=== PATIENT | female | born 1955 | race Caucasian/White ===

== ENCOUNTER 2018-04-18 22:07 | Observation (INO) | payer OTHER ==
--- NOTE | 2018-04-18 22:27 | EDPHY ---
H & P Stated Complaint: sternum pain after fall lat night Time Seen by Provider: 04/18/18 22:27 HPI/ROS: HPI CHIEF COMPLAINT: Anterior chest wall pain right sternal pain status post fall. HISTORY OF PRESENT ILLNESS: Patient is 62-year-old female, visiting her daughter from out of town yesterday was at his daughter's house and tripped over something and fell hitting her right anterior chest wall on a table corner. She now has right-sided anterior chest wall pain. Denies shortness of breath we she does take a deep breath in a gives her discomfort on the anterior right chest wall. Also when you press on her right anterior chest wall gives her discomfort. Denies any other areas of injury. Not on any blood thinners. Plan for this patient Patient took ibuprofen prior to arrival. Past Medical History: Hypertension, thyroid disease, chronic back pain Past Surgical History: No recent surgery Social History: denies daily use of drugs or alcohol. Visiting daughter from [facility]. Family History: Noncontributory ROS REVIEW OF SYSTEMS: 10 Systems were reviewed and negative with the exception of the elements mentioned in the history of present illness. Exam Constitutional triage nursing summary reviewed, vital signs reviewed, awake/ alert. Eyes normal conjunctivae and sclera, EOMI, PERRLA. HENT normal inspection, atraumatic, moist mucus membranes, no epistaxis, neck supple/ no meningismus, no raccoon eyes. Respiratory clear to auscultation bilaterally, normal breath sounds, no respiratory distress, no wheezing. Cardiovascular chest wall: No significant signs of trauma on chest wall exam no ecchymosis, RN Holley at bedside, mild tender palpation over the right sternal edge. No crepitus. No evidence of ecchymosis or hematoma. rate normal , regular rhythm, no murmur, no edema, distal pulses normal. Gastrointestinal soft, non-tender, no rebound, no guarding, normal bowel sounds, no distension, no pulsatile mass. Genitourinary no CVA tenderness. Musculoskeletal no midline vertebral tenderness, full range of motion, no calf swelling, no tenderness of extremities, no meningismus, good pulses, neurovascularly intact. Skin pink, warm, & dry, no rash, skin atraumatic. Neurologic awake, alert and oriented x 3, AAOx3, moves all 4 extremities equally, motor intact, sensory intact, CN II-XII intact, normal cerebellar, normal vision, normal speech. Psychiatric normal mood/affect. Heme/Lymph/Immune no lymphadenopathy. Differential Diagnosis: Includes but is not limited to in a particular order rib fractures, rib contusion, soft tissue injury, chest wall injury, sternal fracture, pneumothorax, hemothorax, pulmonary contusion Medical Decision Making: Two view chest x-ray to rule out pneumothorax or rib fractures. [place] for pain control. Re-evaluate. Re-evaluation: X-ray two view of the chest negative for acute traumatic injury On re-evaluation at 11:57 p.m. The patient continues to have right anterior chest wall pain and tender palpation no focal area right anterior chest wall in right sternal border. Given the x-ray is unrevealing will proceed with CT scan without contrast of the chest rule out rib fractures sternal fracture. CT chest without contrast for trauma: Negative for sternal fracture or rib fractures or pneumothorax. Incidental noted finding apical lung nodule Also CBD duct dilated on CT. 0210AM: I did go re-evaluate the patient at this time. She continues to complain of right anterior chest wall pain reproducible on exam and tender palpation. Her workup so far the emergency room her CT and x-ray unremarkable. There is no external sign of trauma. Given that she has ongoing pain despite oral pain medicine here in emergency room will establish an IV, should be given IV pain medicine IV fluids, check blood work EKG and re-evaluate. EKG interpretation by me on record in [employer] system. Impression time of EKG 2:19 a.m., sinus rhythm rate of 86, no signs of acute ischemia. CT angiogram of the chest shows no evidence of pulmonary embolism. Normal aorta. Called to me by Dr. Lozano. 4:35 a.m. Re-evaluation patient still complaining of right anterior chest wall pain. Is also noted the patient is hypertensive 210/121. She does not have any chest pain. Her troponin is negative EKG is nonischemic CT angiogram negative for PE Patient's sodium is noted to be low at 124 Plan for low sodium, and appears to be going through opiate withdrawal with hypertension will give 1 mg IV Ativan to help improve her anxiety, should be admitted the hospital service for hyponatremia, opiate withdrawal She left her opioids in [facility] is not had them for 3 days. She takes 10 mg of oxycodone 3 times a day sometime she takes more than this. Followed by a chronic pain management doctor in [place]. 0450: Spoke with Dr. Rod, Agrees to admit. Admit for opiate withdrawal, hyponatremia, hypertension Source: Patient - Personal History Current Tetanus/Diphtheria Vaccine: Yes - Medical/Surgical History Hx Asthma: No Hx Chronic Respiratory Disease: No Hx Diabetes: No Hx Cardiac Disease: No Hx Renal Disease: No Hx Cirrhosis: No Hx Alcoholism: No Hx HIV/AIDS: No Hx Splenectomy or Spleen Trauma: No Other PMH: hypothyroid, low sodium, GERD, high cholesterol - Social History Smoking Status: Current every day smoker Constitutional: Initial Vital Signs Temperature (C) 36.8 C 04/18/18 22:11 Heart Rate 99 04/18/18 22:11 Respiratory Rate 18 04/18/18 22:11 Blood Pressure 195/107 H 04/18/18 22:11 O2 Sat (%) 98 04/18/18 22:11 O2 Delivery Mode Room Air Allergies/Adverse Reactions: codeine Allergy (Verified 04/18/18 22:13) Vomiting sulfamethoxazole [From Bactrim] Allergy (Verified 04/18/18 22:13) Vomiting trimethoprim [From Bactrim] Allergy (Verified 04/18/18 22:13) Vomiting Home Medications: Medication Instructions Recorded Levothyroxine [Synthroid 25 mcg 25 mcg PO DAILY 04/18/18 (*)] Omeprazole 20 mg PO DAILY 04/18/18 Ranitidine HCl [Zantac] 300 mg PO DAILY 04/18/18 Simvastatin 40 mg PO DAILY 04/18/18 Fluticasone Nasal [Flonase Nasal 1 sprays NASAL DAILY PRN 04/19/18 [place]] Ibuprofen [Motrin (*)] 800 mg PO BID 04/19/18 Lisinopril [Zestril 20 mg (*)] 20 mg PO DAILY 04/19/18 oxyCODONE HCL/ACETAMINOPHEN 1 each PO Q6H 04/19/18 [Percocet 10-325 mg Tablet] oxyCODONE IR [Oxycodone Ir (*)] 5 - 10 mg PO Q3HRS PRN #20 tab 04/19/18 Medical Decision Making - Data Points Laboratory Results: Laboratory Results 04/19/18 02:20 04/19/18 02:20 Medications Given: Discontinued Medications Acetaminophen (Tylenol) 650 mg PO Q4HRS PRN PRN Reason: Pain, Mild/Fever, Can Take PO Stop: 10/16/18 05:02 Last Admin: 04/19/18 09:18 Dose: 650 mg Hydrocodone Bitart/Acetaminophen ([place] 5/325) 1 tab PO EDNOW ONE Stop: 04/18/18 22:48 Last Admin: 04/18/18 22:51 Dose: 1 tab Diphenhydramine HCl (Benadryl Injection) 50 mg IVP EDNOW ONE Stop: 04/19/18 03:25 Last Admin: 04/19/18 03:25 Dose: 50 mg Enoxaparin Sodium (Lovenox) 40 mg SC DAILY [facility] Stop: 10/16/18 08:59 Last Admin: 04/19/18 09:18 Dose: Not Given Hydromorphone HCl (Dilaudid) 0.5 mg IVP EDNOW ONE Stop: 04/19/18 02:11 Last Admin: 04/19/18 02:18 Dose: 0.5 mg Sodium Chloride (Ns) 1,000 mls @ 0 mls/hr IV EDNOW ONE; Wide Open PRN Reason: Protocol Stop: 04/19/18 02:10 Last Admin: 04/19/18 02:17 Dose: 1,000 mls Levothyroxine Sodium (Synthroid) 25 mcg PO DAILY [facility] Stop: 10/16/18 11:14 Last Admin: 04/19/18 13:18 Dose: Not Given Lorazepam (Ativan Injection) 1 mg IVP EDNOW ONE Stop: 04/19/18 04:36 Last Admin: 04/19/18 04:36 Dose: 1 mg Miscellaneous Medication (Oxycodone Hcl/Acetaminophen [Percocet 10-325 Mg Tablet ]) 1 each PO Q6H JAMESON Stop: 10/16/18 11:14 Last Admin: 04/19/18 13:19 Dose: Not Given Oxycodone HCl (Oxycodone Ir) 5 - 10 mg PO Q3HRS PRN PRN Reason: Pain, Severe Able to Take PO Stop: 04/29/18 05:02 Last Admin: 04/19/18 12:18 Dose: 10 mg Point of Care Test Results: Chemistry 04/19/18 02:23 POC Troponin I 0.01 ng/mL ng/mL (0.00-0.08) Departure - Departure Disposition: [facility] Inpatient Acute Clinical Impression: Opioid withdrawal, Chest wall pain, Hyponatremia Hypertension Qualifiers: Hypertension type: unspecified Qualified Code(s): I10 - Essential (primary) hypertension Condition: Fair
[2018-04-18] MEDS ORDERED: HYDROCODONE/APAP 5/325 TAB PO ONE (22:47)
[2018-04-18] MEDS ORDERED: HYDROCODONE/APAP 5/325 TAB ONE (22:50)
[2018-04-19] MEDS ORDERED: NS 1,000 ML IV ONE (02:09)
[2018-04-19] MEDS ORDERED: HYDROmorphONE/DILAUDID 2 MG/ML INJ IVP ONE (02:10)
[2018-04-19 02:41] LABS: PLATELET COUNT 252 10^3/uL (150-400)
[2018-04-19 02:49] LABS: INR 0.89 (0.83-1.16); PROTIME(PATIENT) 12.3 SEC (12.0-15.0)
[2018-04-19] MEDS ORDERED: IOPAMIDOL (ISOVUE 370) 100 ML BTL IV ONE (03:19)
[2018-04-19] MEDS ORDERED: LORazepam 2 MG/ML INJ ONE (04:34)
[2018-04-19] MEDS ORDERED: LORazepam 2 MG/ML INJ IVP ONE (04:35)
[2018-04-19] MEDS ORDERED: ACETAMINOPHEN 325 MG TAB PO PRN (05:03)
[2018-04-19] MEDS ORDERED: ONDANSETRON DISINTEGRATING 4 MG TAB PO PRN (05:03)
[2018-04-19] MEDS ORDERED: ONDANSETRON 4 MG/2 ML VIAL IVP PRN (05:03)
[2018-04-19] MEDS ORDERED: hydrALAZINE 25 MG TAB PO PRN (05:06)
--- NOTE | 2018-04-19 05:29 | PDGENHP ---
History and Physical - Chief Complaint Chest wall pain - History of Present Illness 62 yo F w/ HTN and chronic back pain presents with chest wall pain after a fall. The patient fell and hit her chest on a coffee table. She came in to the ED because of pain related to this. Her pain has proved difficult to control. A CXR, CT, and CTA of her chest did not reveal any significant pathology. There are no clear abnormalities on exam, either. Her BP has been elevated in the ED but this improved with Ativan only. Her laboratory work-up is notable for sodium of 124, she is being admitted mostly for management of this. Case discussed with ED physician Dr. Schwab; records reviewed and summarized above. History Information - Allergies/Home Medication List Allergies/Adverse Reactions: codeine Allergy (Verified 04/18/18 22:13) Vomiting sulfamethoxazole [From Bactrim] Allergy (Verified 04/18/18 22:13) Vomiting trimethoprim [From Bactrim] Allergy (Verified 04/18/18 22:13) Vomiting Home Medications: Levothyroxine 04/18/18 [Last Taken Unknown] Omeprazole 04/18/18 [Last Taken Unknown] Ranitidine HCl 04/18/18 [Last Taken Unknown] SIMVASTATIN 04/18/18 [Last Taken Unknown] I have personally reviewed and updated: family history, medical history - Past Medical History hypertension - Surgical History Additional surgical history: R wrist surgery. L shoulder surgery - Family History Additional family history: Asked, denies - Social History Smoking Status: Current every day smoker Review of Systems Review of Systems: ROS: 10pt was reviewed & negative except for what was stated in HPI & below Physical Exam Physical Exam: Temp Pulse Resp BP Pulse Ox 36.6 C 89 16 191/120 H 95 04/19/18 03:47 04/19/18 03:47 04/19/18 03:47 04/19/18 03:47 04/19/18 03:47 Constitutional: appears nourished, uncomfortable Eyes: PERRL, EOMI Ears, Nose, Mouth, Throat: moist mucous membranes, no oral mucosal ulcers Cardiovascular: regular rate and rhythym, systolic murmur Respiratory: no respiratory distress, clear to auscultation Gastrointestinal: normoactive bowel sounds, soft, non-tender abdomen Skin: warm, normal color Musculoskeletal: full muscle strength, other (TTP over sternum) Psychiatric: interacting appropriately, anxious Lab Data & Imaging Review 04/19/18 02:20 04/19/18 02:20 WBC 5.29 10^3/uL (3.80-9.50) 04/19/18 02:20 RBC 3.70 10^6/uL (4.18-5.33) L 04/19/18 02:20 Hgb 12.5 g/dL (12.6-16.3) L 04/19/18 02:20 Hct 34.3 % (38.0-47.0) L 04/19/18 02:20 MCV 92.7 fL (81.5-99.8) 04/19/18 02:20 MCH 33.8 pg (27.9-34.1) 04/19/18 02:20 MCHC 36.4 g/dL (32.4-36.7) 04/19/18 02:20 RDW 11.9 % (11.5-15.2) 04/19/18 02:20 Plt Count 252 10^3/uL (150-400) 04/19/18 02:20 MPV 9.5 fL (8.7-11.7) 04/19/18 02:20 Neut % (Auto) 60.9 % (39.3-74.2) 04/19/18 02:20 Lymph % (Auto) 25.7 % (15.0-45.0) 04/19/18 02:20 [place] % (Auto) 11.5 % (4.5-13.0) 04/19/18 02:20 Eos % (Auto) 1.1 % (0.6-7.6) 04/19/18 02:20 Baso % (Auto) 0.6 % (0.3-1.7) 04/19/18 02:20 Nucleat RBC Rel Count 0.0 % (0.0-0.2) 04/19/18 02:20 Absolute Neuts (auto) 3.22 10^3/uL (1.70-6.50) 04/19/18 02:20 Absolute Lymphs (auto) 1.36 10^3/uL (1.00-3.00) 04/19/18 02:20 Absolute Monos (auto) 0.61 10^3/uL (0.30-0.80) 04/19/18 02:20 Absolute Eos (auto) 0.06 10^3/uL (0.03-0.40) 04/19/18 02:20 Absolute Basos (auto) 0.03 10^3/uL (0.02-0.10) 04/19/18 02:20 Absolute Nucleated RBC 0.00 10^3/uL (0-0.01) 04/19/18 02:20 Immature Gran % 0.2 % (0.0-1.1) 04/19/18 02:20 Immature Gran # 0.01 10^3/uL (0.00-0.10) 04/19/18 02:20 PT 12.3 SEC (12.0-15.0) 04/19/18 02:20 INR 0.89 (0.83-1.16) 04/19/18 02:20 APTT 27.6 SEC (23.0-38.0) 04/19/18 02:20 D-Dimer 0.86 ug/mLFEU (0.00-0.50) H 04/19/18 02:20 Sodium 124 mEq/L (135-145) L 04/19/18 02:20 Potassium 3.6 mEq/L (3.5-5.2) 04/19/18 02:20 Chloride 89 mEq/L (97-110) L 04/19/18 02:20 Carbon Dioxide 22 mEq/l (22-31) 04/19/18 02:20 Anion Gap 13 mEq/L (6-14) 04/19/18 02:20 BUN 7 mg/dL (7-23) 04/19/18 02:20 Creatinine 0.6 mg/dL (0.6-1.0) 04/19/18 02:20 Estimated GFR > 60 04/19/18 02:20 Glucose 87 mg/dL (70-100) 04/19/18 02:20 Calcium 9.4 mg/dL (8.5-10.4) 04/19/18 02:20 Magnesium 1.5 mg/dL (1.6-2.3) L 04/19/18 02:20 Total Bilirubin 0.5 mg/dL (0.1-1.4) 04/19/18 02:20 Conjugated Bilirubin 0.2 mg/dL (0.0-0.5) 04/19/18 02:20 Unconjugated Bilirubin 0.3 mg/dL (0.0-1.1) 04/19/18 02:20 AST 66 IU/L (14-46) H 04/19/18 02:20 ALT 45 IU/L (9-52) 04/19/18 02:20 Alkaline Phosphatase 111 IU/L (38-126) 04/19/18 02:20 POC Troponin I 0.01 ng/mL (0.00-0.08) 04/19/18 02:23 NT-Pro-B Natriuret Pep 300 pg/mL (0-125) H 04/19/18 02:20 Total Protein 7.5 g/dL (6.3-8.2) 04/19/18 02:20 Albumin 4.5 g/dL (3.5-5.0) 04/19/18 02:20 Lipase 163 IU/L (23-300) 04/19/18 02:20 Urine Opiates Screen NEGATIVE (NEGATIVE) 04/19/18 02:20 Urine Barbiturates NEGATIVE (NEGATIVE) 04/19/18 02:20 Ur Phencyclidine Scrn NEGATIVE (NEGATIVE) 04/19/18 02:20 Ur Amphetamine Screen NEGATIVE (NEGATIVE) 04/19/18 02:20 U Benzodiazepines Scrn NEGATIVE (NEGATIVE) 04/19/18 02:20 Urine Cocaine Screen NEGATIVE (NEGATIVE) 04/19/18 02:20 U Marijuana (THC) Screen NEGATIVE (NEGATIVE) 04/19/18 02:20 Imaging Review: Imaging Impressions Chest X-Ray 04/18/18 22:27 Impression: No acute cardiopulmonary process. No displaced fracture. Chest CT 04/18/18 23:40 Impression: 1. No acute intrathoracic process. No acute osseous abnormality. 2. Left apical groundglass nodule measures 7.7 mm. There is an additional 2.1 mm right apical nodule. Recommend CT chest in 6-12 months to confirm persistence. 3. Mild extrahepatic ductal dilatation. Recommend correlating with LFTs and if abnormal, would consider ERCP or MRCP. Findings and recommendations discussed with Phoenix Multani MD at 1209 hour, 04/19/2018. Assessment & Plan Assessment: 62 yo F w/ HTN and chronic back pain presents with MSK pain after a fall and found to have hyponatremia. Plan: 1. Hyponatremia - Unclear chronicity; patient appears euvolemic. Serum sodium 124 on admission. I suspect there is some contribution from drinking lots of water and travelling to altitude from sea level. SIADH from pain is another consideration as well. - Repeat BMP now - Will need slow correction noting chronicity is not known - Obtain Osms and Luz 2. HTN - Elevated BP in the ED but improved with Ativan only. On lisinopril as outpatient. - Continue home meds pending reconciliation 3. Chest wall pain - MSK 2/2 fall. CXR, CT, and CTA without abnormality. - Oxycodone PRN 4. Chronic back pain - Continue oxycodone PRN Diet - Regular Code - Full Ppx - LMWH Dispo - Admit under observation status
--- NOTE | 2018-04-19 07:12 | CPEKG ---
Test Reason : OPEN Blood Pressure : / mmHG Vent. Rate : 086 BPM Atrial Rate : 086 BPM P-R Int : 178 ms QRS Dur : 105 ms QT Int : 382 ms P-R-T Axes : 075 -37 035 degrees QTc Int : 457 ms Sinus rhythm Atrial premature complex Left axis deviation Confirmed by Phoenix Multani ([id number]) on 04/19/2018 7:12:18 AM Referred By: Confirmed By:Phoenix Multani
[2018-04-19] MEDS ORDERED: ENOXAPARIN 40 MG/0.4 ML SYR SC SCH (09:00)
[2018-04-19] MEDS: oxyCODONE IR 5 MG TAB PO PRN ×2 (09:18→12:18)
[2018-04-19 11:02] VITALS: BP 167/100
[2018-04-19] MEDS ORDERED: LEVOTHYROXINE 25 MCG TAB PO SCH (11:15)
[2018-04-19] MEDS ORDERED: NON-FORMULARY NEW DRUG (Oxycodone Hcl/Acetaminophen [Percocet 10-325 Mg Tablet] 1 EACH) PO SCH (11:15)
--- NOTE | 2018-04-19 11:40 | HOSPPROG ---
Hospitalist Progress Note Assessment/Plan: 62 yo F w mech fall, incidental hyponatremia home today see dc summary Subjective: sodium improving. urine studies c/w water intoxication Objective: Vital Signs Temp Pulse Resp BP Pulse Ox 36.6 C 106 H 13 167/100 H 92 04/19/18 11:02 04/19/18 11:02 04/19/18 11:02 04/19/18 11:02 04/19/18 11:02 Laboratory Results 04/19/18 09:30 04/18/18 04/19/18 04/20/18 05:59 05:59 05:59 Intake Total 1000 Balance 1000 PT 12.3 SEC (12.0-15.0) 04/19/18 02:20 INR 0.89 (0.83-1.16) 04/19/18 02:20 - Physical Exam Constitutional: no apparent distress, appears nourished Eyes: PERRL, anicteric sclera Ears, Nose, Mouth, Throat: moist mucous membranes, hearing normal Cardiovascular: regular rate and rhythym, no murmur, rub, or gallop Respiratory: no respiratory distress, no rales or rhonchi Gastrointestinal: normoactive bowel sounds, soft, non-tender abdomen Genitourinary: no bladder fullness, No balderas in urethra Skin: warm, normal color Musculoskeletal: full muscle strength Neurologic: AAOx3, sensation intact bilaterally Psychiatric: interacting appropriately ICD10 Worksheet Patient Problems: Problems Problem Status Onset Chest wall pain Acute Hypertension Acute Hyponatremia Acute Opioid withdrawal Acute
--- NOTE | 2018-04-19 12:01 | GDS ---
DISCHARGE DIAGNOSES: 1. Fall. 2. Chronic pain. 3. Hypertension. 4. Hyponatremia, secondary to water intoxication. 5. Chronic pain, on continuous narcotics. HOSPITAL COURSE: Please see admission history and physical by Dr. Rod. The patient had a mechanical fall, hitting her chest. She had a workup with a chest CT, chest x-ray, and chest CTAB, showing no pathology. Unremarkable exam. She had an EKG that was nonischemic and n egative troponin. She was found to have a sodium of 124. She acknowledged drinking a great deal of fluids upon coming to [place], because of the altitude and area of climate. She has received a lite r of IV fluids in the emergency department, which improved her sodium. After they were discontinued, her sodium settled out at 129. She has an unknown baseline. Her urine study showed low urine osmol es of 134 and a normal urine random sodium. This is consistent with water intoxication. She was adv ised to drink until her urine is clear and no further. She is discharged home. She was provided a p rescription for oxycodone, given her new pain and chronic narcotics. /[id number]/MODL
--- NOTE | 2018-04-19 12:03 | ASMTCMCOM ---
CM Note CM Note Notes: Chart reviewed. 62 year old female from [place] admitted from ED wit fall and hypo-natremia. She is from [place] and will f/u with care there for withdrawal of walter medications. Plan: Dc to home with family Date Signed: 04/19/2018 12:02 PM Electronically Signed By:Teresa Swanson RN
--- NOTE | 2018-04-19 12:04 | ASMTLACE ---
LACE Length of stay for Answers: Less than 1 day current admission Acuity / Level of Answers: No Care: Did the patient have an inpatient admission? Comorbidities - select Answers: Opioid dependence all that apply / Chronic pain # of Emergency department Answers: 1-2 visits in the last 6 months Social determinants Answers: Mental health diagnosis (anxiety, depression, pers onality disorders, etc.) Score: 8 Date Signed: 04/19/2018 12:03 PM Electronically Signed By:Teresa Swanson RN
[2018-04-19] MEDS ORDERED: ATORVASTATIN CALCIUM 20 MG TAB PO SCH (12:30)
[2018-04-19] MEDS ORDERED: PANTOPRAZOLE SODIUM 40 MG TAB PO SCH (12:30)
[2018-04-19] MEDS ORDERED: oxyCODONE IR 5 MG TAB PO SCH (12:30)
[2018-04-19] MEDS ORDERED: OXYCODONE/APAP 5/325 TAB PO SCH (12:30)
[2018-04-19] MEDS ORDERED: FAMOTIDINE 20 MG TAB PO SCH (12:30)
[2018-04-19] MEDS ORDERED: IBUPROFEN 800 MG TAB PO SCH (21:00)
[2018-04-20] MEDS ORDERED: LISINOPRIL 20 MG TAB PO SCH (09:00)
== END 2018-04-19 12:25 | disposition home or self-care (01) ==
LOC: F2W 04-19 05:39
PROVIDERS: ADMIT Student in an Organized Health Care Education/Training Program; ATTEND Student in an Organized Health Care Education/Training Program
DX: R07.89 Other chest pain (principal); W18.09XA Striking against other object with subsequent fall, initial encounter; I10 Essential (primary) hypertension; G89.29 Other chronic pain
CPT/HCPCS: 71046; 71250; 71275; 93005; G0378; J1170; J1200; J2060; Q9967; 80305; 84484-ER; 96374; J1650